=== PATIENT | female | born 1965 | race American Indian/Alaskan Native ===

== ENCOUNTER 2018-11-13 13:58 | Outpatient (CLI) | payer OTHER ==
--- NOTE | 2018-11-13 17:22 | Mammography Report ---
DIGITAL SCREENING MAMMOGRAM WITH CAD, 11/13/2018 INDICATION: Routine screening mammography. TECHNIQUE: Digital bilateral 2D mammography was obtained in the craniocaudal and mediolateral obliq ue projections. This examination was interpreted with the benefit of Computer-Aided Detection analysi s. COMPARISON: 04/28/2009 FINDINGS: Breast Density: There are scattered areas of fibroglandular density. There is no evidence of dominant mass, suspicious calcifications or architectural distortion in eithe r breast. There is mild bilateral nodularity, stable from prior exam. IMPRESSION: No evidence of malignancy. BI-RADS Category 2: Benign. No mammographic evidence of malignancy. Recommend routine screening ma mmography in one year. A "normal" or negative report should not discourage follow up or biopsy of a clinically significant f inding. A written summary of these findings will be mailed to the patient. The patient will be entered into a mammography reporting system which will generate a reminder letter for the patient's next appointmen t at the appropriate interval. The [employer] recommends yearly mammograms starting at age 40 and continuing as l wale as a woman is in good health. Breast MRI is recommended for women with an approximate 20-25% or greater lifetime risk of breast cancer, including women with a strong family history of breast or ova eduar cancer or who have been treated for Hodgkin's disease. Signer Name: Latonia Collins MD Signed: 11/13/2018 5:17 PM Workstation Name: [id number]
== END 2018-11-13 13:59 | disposition home or self-care (01) ==
LOC: SPVWC 13:58
DX: Z12.31 Encounter for screening mammogram for malignant neoplasm of breast (principal)
CPT/HCPCS: 77067